=== PATIENT | female | born 1945 | race Caucasian/White ===

== ENCOUNTER 2024-06-13 18:13 | Emergency (ER) | payer OTHER, MEDICAID ==
[~2024-06-13] VITALS: Ht 152.4 cm; Wt 59.4 kg
[2024-06-13 18:23] VITALS: BP_SYST 150; PULSE 59; RESP 20; TEMP 98.3; O2SAT 98
[2024-06-13] MEDS: HYDROcodone/ACETAMIN 5-325 MG TAB (NORCO/ VICODIN) PO ONE (23:22)
[2024-06-13] MEDS ORDERED: ONDA-8 TL (23:31)
[2024-06-13] MEDS ORDERED: IBUP-1968 PO (23:31)
[2024-06-13 23:54] VITALS: BP_SYST 144; PULSE 71; RESP 18; O2SAT 97
== END 2024-06-13 23:54 | disposition home or self-care (01) ==
LOC: SED 18:13
DX: S50.01XA Contusion of right elbow, initial encounter (principal); S80.01XA Contusion of right knee, initial encounter; S09.8XXA Other specified injuries of head, initial encounter; E11.9 Type 2 diabetes mellitus without complications; I10 Essential (primary) hypertension; Z79.899 Other long term (current) drug therapy; W01.0XXA Fall on same level from slipping, tripping and stumbling without subsequent striking against object, initial encounter; Y93.89 Activity, other specified; Y92.89 Other specified places as the place of occurrence of the external cause; Y99.8 Other external cause status
CPT/HCPCS: 70450-TC; 73564; 99284